=== PATIENT | male | born 1965 | race Caucasian/White ===

== ENCOUNTER 2018-09-15 17:19 | Emergency (ER) | payer OTHER, BC ==
[2018-09-15 17:49] VITALS: BP 131/77; PULSE 87; RESP 18; TEMP 99; O2SAT 100
== END 2018-09-15 19:02 | disposition left against medical advice (07) ==
LOC: C.ER 17:19
DX: Z02.89 Encounter for other administrative examinations (principal); M54.5 Low back pain